=== PATIENT | female | born 1970 | race Caucasian/White ===

== ENCOUNTER 2019-08-03 06:13 | Day surgery (SDC) | payer BC ==
[2019-07-27 11:25] VITALS: BMI 25.8
[~2019-08-03 06:13] MED LIST: BUPIVACAINE HCL/PF 0.5% (5 MG/ML) 30 ML VIAL IJ ONE; LIDOCAINE HCL 2% (50ML VIAL) NR ONE; TRIAMCINOLONE ACET 40MG/1ML VIAL IJ ONE
[2019-08-03] MEDS ORDERED: MIDAZOLAM HCL 2 MG/2 ML SINGLE DOSE VIAL ONE ×2 (07:15→08:20)
[2019-08-03] MEDS ORDERED: PROPOFOL 20 ML ONE (07:15)
[2019-08-03] MEDS ORDERED: SUCCINYLCHOLINE CHLORIDE 200 MG/10 ML SYRINGE ONE (07:15)
[2019-08-03] MEDS ORDERED: LIDOCAINE HCL 2% (20ML MULTI-DOSE VIAL) NR ONE (07:44)
[2019-08-03] MEDS ORDERED: TRIAMCINOLONE ACET 40MG/1ML VIAL ONE (07:44)
[2019-08-03] MEDS ORDERED: BUPIVACAINE HCL/PF 0.5% (5MG/ML) 10 ML VIAL ONE (07:45)
[2019-08-03] MEDS ORDERED: LIDOCAINE HCL/EPINEPHRINE/PF 20 ML VIAL ONE (08:08)
[2019-08-03] MEDS ORDERED: ceFAZolin SODIUM 1 GM VIAL IVPB ONE (08:21)
[2019-08-03] MEDS ORDERED: LIDOCAINE 2%/EPINEPHRINE 1:100000 (50 ML MD VIAL) INF ONE (08:26)
[2019-08-03] MEDS ORDERED: LIDO 2%/EPI 1:200000 PRESRVFRE (20 ML SDVIAL) INF ONE (08:26)
[2019-08-03] MEDS ORDERED: ceFAZolin SODIUM 1 GM VIAL ONE (08:42)
[2019-08-03] MEDS ORDERED: ONDANSETRON 4 MG/2 ML VIAL ONE (09:28)
[2019-08-03] MEDS ORDERED: DEXAMETHASONE SOD PHOSPHATE 4 MG/1 ML VIAL ONE (09:28)
[2019-08-03] MEDS ORDERED: TRIAMCINOLONE ACET 40MG/1ML VIAL IJ ONE (09:49)
[2019-08-03] MEDS ORDERED: BUPIVACAINE HCL/PF 0.5% (5 MG/ML) 30 ML VIAL IJ ONE (09:49)
--- NOTE | 2019-08-03 11:25 | OP ---
DATE OF OPERATION: 08/03/2019 PREOPERATIVE DIAGNOSES: Bunion, hammer toe number 4, and skin lesion, right foot. POSTOPERATIVE DIAGNOSES: Bunion, hammer toe number 4, and skin lesion, right foot. ANESTHESIA: MAC with local. SURGERY: Bunionectomy with osteotomy, right foot, hammer toe correction right number 4, and excision of skin lesion. DESCRIPTION OF PROCEDURE: The patient was prepped and draped in the usual sterile manner with MAC with local. Attention was directed to the 1st metatarsophalangeal joint. The incision was performed. It was carried down carefully to the level of the joint capsule Boving bleeders where necessary. Linear capsulotomy was performed. Capsular and ligamentous structures attached to the hypertrophic dorsal eminence region, 1st metatarsophalangeal joint was dissected free. The medial eminence was excised with a surgical saw. It was smooth without . A modified V-shaped osteotomy was then performed in the head. It was put into the correct position and held with a temporary wire fixation. It was noted to be in a stable position. It was confirmed by intraoperative x-ray. It was then fixated with a single 2.4 screw and noted to be stable and in good position and good range of motion at the joint. This was confirmed by intraoperative fluoroscopy. Attention was then directed to the 4th toe. The lesion was removed and sent for pathology. This was done with 2 converging semielliptical incisions. Attention was then directed to the PIPJ region where an exostosis was noted, and it was at the joint, so an arthroplasty was performed laterally. The exostosis and hammer toe were corrected removing this bone, and it was rasped smooth, and then it was closed 5-0 nylon simple sutures. The bunion was closed with 2-0 Polysorb, 4-0 Polysorb, and 4-0 Biosyn for the skin, and then Steri-Strips were applied with Mastisol used 1st. Following all closure, the wounds were flushed with saline. The postoperative injection was given with Marcaine and Kenalog to surgical sites. Patient tolerated procedures and anesthesia well. Surgical bandage was applied. X-rays again confirmed good correction, and patient was seen postoperatively in stable condition. EPHRAIM HAYES/[id number]
[2019-08-03 11:29] VITALS: TEMP 97.6
[2019-08-03 11:42] VITALS: BP 88/56; PULSE 67
[2019-08-03] MEDS ORDERED: oxyCODONE HCL 5 MG TABLET PO PRN ×2 (13:14)
[2019-08-03] MEDS ORDERED: ACETAMINOPHEN 325 MG TABLET (FP) PO PRN (13:14)
[2019-08-03] MEDS ORDERED: ONDANSETRON 4 MG/2 ML VIAL IVPUSH PRN (13:14)
[2019-08-03] MEDS ORDERED: LACTATED RINGERS SOLUTION 1,000 ML IV SCH (13:15)
--- NOTE | 2019-08-09 13:51 | PATH ---
Surgical Pathology Report Patient Name: BETY MAJANO [facility]. Rec. #: [id number] /Age/Gender: 1970 (Age: 48) / F Account: [id number] Location: ON LICENSE OF [facility] AMBULATORY Taken: 08/03/2019 Received: 08/03/2019 Reported: 08/09/2019 Physicians: Severiano Flores M.D. Specimen(s) Received LESION, BUNIONECTOMY & EXOSTOSIS RIGHT FOOT Clinical History Bunion and hammertoe right foot Final Diagnosis LESION, EXOSTOSIS, FOOT, RIGHT, BUNIONECTOMY AND EXCISION: BONE WITH DEGENERATIVE CHANGES. SKIN WITH FOCAL ACANTHOSIS AND MARKED HYPERKERATOSIS. Electronically Signed Lizz Buckley M.D. Gross Description Received in formalin labeled "lesion, bunionectomy and exostosis right foot," are 2 vu-yellow, irregular portions of bone measuring 1.5 x 1.0 x 0.5 cm and 1.7 x 1.6 x 0.3 cm. Also received within the same container is a 1.5 x 0.6 cm vu, elliptical, unoriented and unremarkable portion of skin. No discrete lesions are identified. [employer] sections are submitted in one cassette, following decalcification. The remainder of the skin is entirely submitted in cassette #2. /08/04/2019 [facility]08/04/2019
== END 2019-08-03 10:55 | disposition home or self-care (01) ==
LOC: FASU 06:13
PROVIDERS: ATTEND Podiatrist Foot Surgery
PROC: 0QSN04Z Reposition Right Metatarsal with Internal Fixation Device, Open Approach (ICD-10-PCS; 2019-08-03)
PROC: 0JBQ0ZZ Excision of Right Foot Subcutaneous Tissue and Fascia, Open Approach (ICD-10-PCS; 2019-08-03)
PROC: 0QSN04Z Reposition Right Metatarsal with Internal Fixation Device, Open Approach (ICD-10-PCS; 2019-08-03)
PROC: 0SRP0JZ Replacement of Right Toe Phalangeal Joint with Synthetic Substitute, Open Approach (ICD-10-PCS; 2019-08-03)
PROC: 0HBMXZX Excision of Right Foot Skin, External Approach, Diagnostic (ICD-10-PCS; 2019-08-03)
PROC: 0SRP0JZ Replacement of Right Toe Phalangeal Joint with Synthetic Substitute, Open Approach (ICD-10-PCS; principal; 2019-08-03 08:00)
DX: M20.11 Hallux valgus (acquired), right foot (principal); M21.611 Bunion of right foot; M20.41 Other hammer toe(s) (acquired), right foot; D49.2 Neoplasm of unspecified behavior of bone, soft tissue, and skin
CPT/HCPCS: 73630-TC-RT-FY; 84703; 88304-TC; 88311-TC